=== PATIENT | male | born 1990 | race Caucasian/White ===

== ENCOUNTER 2019-10-22 15:36 | Emergency (ER) | payer SELFPAY ==
[~2019-10-22] VITALS: Ht 185.4 cm; Wt 90.7 kg
--- NOTE | 2019-10-22 15:40 | NUR ---
PT TO ER BED 10
[2019-10-22 15:42] VITALS: BP 116/75
--- NOTE | 2019-10-22 16:13 | NUR ---
C/O SUDDEN ONSET OF LEFT SIDED CHEST PAIN RADIATING LEFT SHOULDER ---1 HR AGO DENIES INJURY OR RECENT HACKING COUGH---NO ACCESSORY MUSCLE USE NOTED
[2019-10-22 16:53] VITALS: BP 134/78
--- NOTE | 2019-10-22 16:54 | NUR ---
Patient discharged with v/s stable. Written and verbal after care instructions given and explained. Patient verbalized understanding. Ambulatory with steady gait. All questions addressed prior to discharge. Advised to follow up with PMD.
== END 2019-10-22 16:54 | disposition home or self-care (01) ==
LOC: MED 15:36
DX: J06.9 Acute upper respiratory infection, unspecified (principal); R07.89 Other chest pain
CPT/HCPCS: 71045; 93005; 99283; Q0092